=== PATIENT | female | born 2000 | race Caucasian/White ===

== ENCOUNTER 2021-12-31 04:58 | Emergency (ER) | payer SELFPAY ==
[~2021-12-31] VITALS: Ht 165.1 cm; Wt 65.8 kg
--- NOTE | 2021-12-31 04:58 | NUR ---
PT BIB [facility], PREBOOK. TAKEN TO CHAIR
[2021-12-31 04:59] VITALS: BP 122/88
--- NOTE | 2021-12-31 06:02 | NUR ---
PATIENT [facility] DEPT. PATIENT EXAMINED BY DR. MANCNII. PATIENT MEDICALLY CLEARED AND RELEASED IN CUSTODY IN STABLE CONDITION. ORIGINAL PRE-BOOK FORM GIVEN TO OFFICER SRAVANI, #[id number].
== END 2021-12-31 06:02 ==
LOC: MED 04:58
DX: S20.212A Contusion of left front wall of thorax, initial encounter (principal); Z02.89 Encounter for other administrative examinations; Z86.2 Personal history of diseases of the blood and blood-forming organs and certain disorders involving the immune mechanism; V49.9XXA Car occupant (driver) (passenger) injured in unspecified traffic accident, initial encounter; Y93.89 Activity, other specified; Y92.410 Unspecified street and highway as the place of occurrence of the external cause; Y99.8 Other external cause status
CPT/HCPCS: 99283